=== PATIENT | male | born 1975 | race Caucasian/White ===

== ENCOUNTER → 2022-07-03 | Day surgery (SDC) | payer MEDICARE ==
[~2022-07-03] MED LIST: CBD OIL SL; LIDOCAINE HCL 2% LOCAL INJ 5 ML SDV VIAL INJ ONE; MIDAZOLAM HCL 2 MG/2 ML VIAL ONE; PANTOPRAZOLE SO40 MG PO; PROPOFOL IV EMULSION 10 MG/ML 20 ML VIAL ONE; SYNTHROID100 MCG PO
[2022-07-03 12:06] VITALS: BP 122/87
== END | disposition home or self-care (01) ==
LOC: OR 08:42
PROVIDERS: ATTEND Internal Medicine Gastroenterology
DX: K92.0 Hematemesis (principal); D12.0 Benign neoplasm of cecum; D12.2 Benign neoplasm of ascending colon; D12.4 Benign neoplasm of descending colon; K29.50 Unspecified chronic gastritis without bleeding; K21.9 Gastro-esophageal reflux disease without esophagitis; K21.00 Gastro-esophageal reflux disease with esophagitis, without bleeding; K44.9 Diaphragmatic hernia without obstruction or gangrene; K64.8 Other hemorrhoids; G47.33 Obstructive sleep apnea (adult) (pediatric); R17 Unspecified jaundice; E03.9 Hypothyroidism, unspecified; E11.9 Type 2 diabetes mellitus without complications; R03.0 Elevated blood-pressure reading, without diagnosis of hypertension; Z88.8 Allergy status to other drugs, medicaments and biological substances; Z79.899 Other long term (current) drug therapy
CPT/HCPCS: 43239; 45380; 45385; 88305; 88342; 93005; J2001; J2250; J2704; 88304; 88312

== ENCOUNTER → 2022-10-02 | Day surgery (SDC) | payer MEDICARE ==
[~2022-10-02] MED LIST changes: +CARAFATE1 GM PO; +CBD OIL PO; +LACTATED RINGER'S 1,000 ML ONE; -MIDAZOLAM HCL 2 MG/2 ML VIAL ONE; +POVIDONE IODINE 0.05% 0.05 % ML PO ONE; +ZOLOFT100 MG PO
[2022-10-02 14:05] VITALS: BP 129/90
== END | disposition home or self-care (01) ==
LOC: OR 10:52
PROVIDERS: ATTEND Internal Medicine Gastroenterology
DX: K21.00 Gastro-esophageal reflux disease with esophagitis, without bleeding (principal); K29.50 Unspecified chronic gastritis without bleeding; K92.0 Hematemesis; K64.8 Other hemorrhoids; K44.9 Diaphragmatic hernia without obstruction or gangrene; E11.9 Type 2 diabetes mellitus without complications; E03.9 Hypothyroidism, unspecified; Z79.899 Other long term (current) drug therapy
CPT/HCPCS: 36415; 43239; 82948; 88305; 88342; J2001; J2704; J7121; 88304; 88312